=== PATIENT | female | born 1980 | race Caucasian/White ===

== ENCOUNTER 2018-06-16 00:21 | Inpatient (IN) | payer BC ==
[2018-06-16] MEDS ORDERED: RINGERS SOLUTION,LACTATED 1,000 ML IV ONE (01:00)
[2018-06-16] MEDS ORDERED: RINGERS SOLUTION,LACTATED 1,000 ML IV PRN (01:00)
[2018-06-16] MEDS ORDERED: MISOPROSTOL 0.2 MG TABLET ONE (01:04)
[2018-06-16] MEDS ORDERED: OXYTOCIN 10 UNIT/ML VIAL ONE (01:04)
[2018-06-16] MEDS ORDERED: LIDOCAINE 1% INJ-PF (10 MG/ML) 30 ML SDV ONE (01:04)
[2018-06-16] MEDS ORDERED: OXYTOCIN/NORMAL SALINE 20 UNIT/1,000 ML RTUINJ ONE (01:04)
[2018-06-16 01:10] LABS: ABSOLUTE LYMPHOCYTES (AUTO) 1.4 10^3/uL (0.5-4.7); ABSOLUTE MONOCYTES (AUTO) 0.6 10^3/uL (0.1-1.4); ABSOLUTE NEUT (AUTO) 9.3 10^3/uL (1.7-8.2); BASOPHILS % (AUTO) 0.3 % (0-2); EOSINOPHILS % (AUTO) 0.1 % (0-6); HEMOGLOBIN 12.8 g/dL (12.0-15.5); LYMPHOCYTES % (AUTO) 12.6 % (13-45); MEAN CORPUSCULAR HEMOGLOBIN 31.2 pg (27.0-33.4); MEAN CORPUSCULAR HGB CONC 34.6 g/dL (32.0-36.0); MEAN CORPUSCULAR VOLUME 90 fl (80-97); MONOCYTES % (AUTO) 5.4 % (3-13); PLATELET COUNT 198 10^3/uL (150-450); RED CELL DISTRIBUTION WIDTH 13.3 % (11.5-14.0); SEGMENTED NEUTROPHILS % (AUTO) 81.6 % (42-78); TOTAL CELLS COUNTED % (AUTO) 100 %; WHITE BLOOD COUNT 11.4 10^3/uL (4.0-10.5)
[2018-06-16 01:11] LABS: APPEARANCE,URINE SLIGHTLY-CLOUDY; BILIRUBIN,URINE NEGATIVE (NEGATIVE); COLOR,URINE YELLOW; GLUCOSE, URINE NEGATIVE (NEGATIVE); KETONES,URINE NEGATIVE (NEGATIVE); LEUKOCYTE ESTERASE,URINE NEGATIVE (NEGATIVE); NITRITE,URINE NEGATIVE (NEGATIVE); PROTEIN,URINE NEGATIVE (NEGATIVE); URINE SPECIFIC GRAVITY 1.016; UROBILINOGEN,URINE NEGATIVE mg/dL (<2.0)
[2018-06-16 01:33] LABS: URINE AMPHETAMINES SCREEN NEGATIVE; URINE BARBITURATES SCREEN NEGATIVE; URINE BENZODIAZEPINES SCREEN NEGATIVE; URINE COCAINE SCREEN NEGATIVE; URINE MARIJUANA (THC) SCREEN NEGATIVE; URINE METHADONE SCREEN NEGATIVE; URINE PHENCYCLIDINE SCREEN NEGATIVE
--- NOTE | 2018-06-16 03:01 | Admission Physical ---
Datetime Report Generated by CPN: 06/16/2018 03:00 CURRENT ADMISSION Chief Complaint: Uterine Contractions Indication for Induction: Not Applicable Admit Impression : Term, Intrauterine ; Active Labor Admit Plan: Admit to Unit; Initiate Labor Protocol ALLERGIES Medication Allergies: No Medication Allergies: No Known Allergies (06/16/2018) Latex: No Latex Allergies Food Allergies: N/A Environmental Allergies: N/A OBSTETRICAL HISTORY EDC: 07/03/2018 00:00 : 2 Para: 1 Term: 1 : 0 SAB: 0 IAB: 0 Ectopic: 0 Livin Cesareans: 0 VBACs: 0 Multiple Births: 0 Gestational Diabetes: No Rh Sensitization: No Incompetent Cervix: No ED: No Infertility: No ART Treatment: No Uterine Anomaly: No IUGR: No Hx Previous C/S: No Macrosomia: No Hx Loss/Stillborn: No PIH: No Hx : No Placenta Previa/Abruption: No Depression/PP Depression: No PTL/PROM: No Post Hemorrhage: No Current Procedures: Ultrasound; NST Obstetrical History Comments: G1 2012, , Girl, 39.4 G2 - Current SEE RECORDS Alcohol: No Marijuana : No Cocaine: No Other Illicit Drugs: No Cigarettes: Former Smoker. 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 INFECTIOUS HISTORY Gonorrhea: No Genital Herpes: No Chlamydia: No Tuberculosis: No Syphilis: No Hepatitis: No HIV/AIDS Exposure: No Rash or Viral Illness: No HPV: No PHYSICAL EXAM General: Normal HEENT: Normal Neurologic: Normal Thyroid: Normal Heart: Normal Lungs: Normal Breast: Normal Back: Normal Abdomen: Normal Genitourinary Exam: Normal Extremities: Normal DTRs: Normal Pelvic Type: Adequate Vital Signs: Reviewed; Within Normal Limits VAGINAL EXAM Dilatation: 6 Effacement: 90 Station: -1 MEMBRANES Pooling: Negative Membranes: Intact Amniotic Fluid Color: Clear FETUS A EGA: 37.4 Monitoring: External US FHR- Baseline: 130 Variability: Moderate 6-25bpm Accelerations: 15X15 Decelerations: None FHR Category: Category I Estimated Weight (gm): 3700 Presentation: Vertex PLANS FOR LABOR AND DELIVERY Labor and Delivery: None Pain Management: Epidural Feeding Preference: Breast Benefit of Breast Feed Discussed: Yes Circumcision: N/A INFORMED CONSENT Signature: with User ID: [email or web address]
[2018-06-16] MEDS ORDERED: NA PHOS,M-B/NA PHOS,DI-BA (ADULT) 133 ML ENEMA PR PRN (03:02)
[2018-06-16] MEDS ORDERED: BENZOCAINE/MENTHOL AEROSOL SPRAY 56 ML TOP PRN (03:02)
[2018-06-16] MEDS ORDERED: DIBUCAINE 1% OINTMENT 28 GM TP PRN (03:02)
[2018-06-16] MEDS ORDERED: PSEUDOEPHEDRINE HCL 30 MG TABLET PO PRN (03:02)
[2018-06-16] MEDS ORDERED: ZOLPIDEM TARTRATE 5 MG TABLET PO PRN (03:02)
[2018-06-16] MEDS ORDERED: OXYTOCIN/NORMAL SALINE 20 UNIT/1,000 ML RTUINJ IV PRN (03:02)
[2018-06-16] MEDS ORDERED: PROMETHAZINE HCL 25 MG TABLET PO PRN (03:02)
[2018-06-16] MEDS ORDERED: GLYCERIN/WITCH HAZEL LEAF 1 EACH MED..PAD TP PRN (03:02)
[2018-06-16] MEDS ORDERED: MEASLES,MUMPS&RUBELLA VACC/PF 0.5 ML VIAL SUBCUT PRN (03:02)
[2018-06-16] MEDS ORDERED: MAGNESIUM HYDROXIDE SUSP 30 ML UDCUP PO PRN (03:02)
[2018-06-16] MEDS ORDERED: ACETAMINOPHEN WITH CODEINE #3 TABLET PO PRN (03:02)
[2018-06-16] MEDS ORDERED: PROMETHAZINE HCL 25 MG SUPP.RECT PR PRN (03:02)
[2018-06-16] MEDS ORDERED: PROMETHAZINE HCL INJ 25 MG/1 ML VIAL IV PRN (03:02)
[2018-06-16] MEDS ORDERED: ACETAMINOPHEN 650 MG SUPP.RECT PR PRN (03:02)
[2018-06-16] MEDS ORDERED: DIPH/PERTUSS(ACELL)/TETANUS VAC/PF 0.5 ML SYR (>=10YO) IM PRN (03:02)
[2018-06-16] MEDS ORDERED: DIPHENHYDRAMINE HCL 25 MG CAPSULE PO PRN (03:02)
[2018-06-16] MEDS ORDERED: ACETAMINOPHEN WITH CODEINE #3 TABLET ONE (03:51)
[2018-06-16] MEDS ORDERED: IBUPROFEN 800 MG TABLET ONE (03:51)
[2018-06-16] MEDS: ACETAMINOPHEN WITH CODEINE #3 TABLET PO PRN ×2 (03:53→19:42)
--- NOTE | 2018-06-16 04:18 | Warning Signs in Babies ---
VOD Warning Signs Datetime Report Generated by [facility]: 06/16/2018 04:18 VOD#608 -Warning Signs in Babies: Needs to be viewed. (06/14/2018 17:30:Rebecca Blackwood RN)
[2018-06-16] MEDS: IBUPROFEN 800 MG TABLET PO SCH ×3 (06:34→22:25)
[2018-06-16] MEDS: SENNOSIDES/DOCUSATE 8.6-50 MG 1 EACH TABLET PO SCH (10:12)
[2018-06-16] MEDS: FERROUS SULFATE 325 MG TABLET PO SCH ×2 (10:12→17:51)
[2018-06-16] MEDS: PRENATAL VITAMIN W DHA CAPSULE PO SCH (10:13)
[2018-06-16] MEDS: FAMOTIDINE 20 MG TABLET PO SCH ×2 (10:13→22:25)
[2018-06-16] MEDS: DOCUSATE SODIUM 100 MG CAPSULE PO SCH ×2 (10:13→17:51)
[2018-06-17] MEDS: IBUPROFEN 800 MG TABLET PO SCH ×3 (05:10→21:32)
[2018-06-17 07:38] LABS: HEMATOCRIT 37.2 % (36.0-47.0); HEMOGLOBIN 12.8 g/dL (12.0-15.5); MEAN CORPUSCULAR HEMOGLOBIN 31.6 pg (27.0-33.4); MEAN CORPUSCULAR HGB CONC 34.3 g/dL (32.0-36.0); MEAN CORPUSCULAR VOLUME 92 fl (80-97); PLATELET COUNT 173 10^3/uL (150-450); RED BLOOD COUNT 4.03 10^6/uL (3.72-5.28); RED CELL DISTRIBUTION WIDTH 13.5 % (11.5-14.0)
[2018-06-17] MEDS: FAMOTIDINE 20 MG TABLET PO SCH ×2 (09:24→21:32)
[2018-06-17] MEDS: FERROUS SULFATE 325 MG TABLET PO SCH ×2 (09:25→17:39)
[2018-06-17] MEDS: DOCUSATE SODIUM 100 MG CAPSULE PO SCH ×2 (09:25→17:39)
[2018-06-17] MEDS: SENNOSIDES/DOCUSATE 8.6-50 MG 1 EACH TABLET PO SCH (09:25)
[2018-06-17] MEDS: PRENATAL VITAMIN W DHA CAPSULE PO SCH (09:25)
--- NOTE | 2018-06-17 12:56 | PDOC DISCHARGE SUMMARY ---
Final Diagnosis Discharge Date: 06/17/18 - Final Diagnosis (1) Hypothyroidism Is this a current diagnosis for this admission?: Yes (2) Normal vaginal delivery Is this a current diagnosis for this admission?: Yes Discharge Data - Discharge Medication Prescriptions: Levothyroxine Sodium [Synthroid 0.05 mg Tablet] 150 mcg PO DAILY #30 tablet Home Medications: No122/Iron/Folic Acid [ Multi Tablet] 1 tab PO DAILY 06/14/18 Acetaminophen with Codeine [Tylenol #3 Tablet] 2 each PO Q4HP PRN tablet Ibuprofen [Motrin 800 mg Tablet] 800 mg PO Q8 tablet 06/17/18 Levothyroxine Sodium [Synthroid 0.05 mg Tablet] 150 mcg PO DAILY #30 tablet Procedures: NST Intrapartum Procedure(s): Spontaneous Vaginal Delivery - Diagnosis Test Laboratory: Temp Pulse Resp BP Pulse Ox 98.6 F 86 18 125/77 100 06/17/18 07:14 06/17/18 07:14 06/17/18 07:14 06/17/18 07:14 06/17/18 07:14 06/16/18 06/16/18 06/17/18 00:40 00:58 07:06 RBC 4.10 4.03 Hgb 12.8 12.8 Hct 37.0 37.2 Urine Opiates Screen NEGATIVE - Discharge information/Instructions Discharge Activity: Balance Activity w/Rest, Pelvic Rest Discharge Diet: Regular Disposition: HOME, SELF-CARE Follow up with: [facility] in: 4, Weeks
--- NOTE | 2018-06-17 12:57 | PDOC PROGRESS REPORT ---
Subjective-OB Progress Note for:: 06/17/18 Subjective: reports bleeding slowing, pain controlled with ibuprofen, denies needs, agrees with plan for discharge today Physical Exam (OB) Vital Signs: Temp Pulse Resp BP Pulse Ox 98.6 F 86 18 125/77 100 06/17/18 07:14 06/17/18 07:14 06/17/18 07:14 06/17/18 07:14 06/17/18 07:14 Intake & Output 06/16/18 06/17/18 06/18/18 06:59 06:59 06:59 Intake Total 240 Balance 240 Weight 85.5 kg - Abdomen Description: Soft, Round Hernia Present: No Fundal Description: Firm, Midline Fundal Height: u/u - u/2 - Abdominal Inspection: Normal Distension: No distension Tenderness: Nontender - Extremities Lower extremities: Koko's sign - neg Calf: Normal, Nontender Objective-Diagnostic Laboratory: 06/17/18 07:06 06/17/18 07:06 WBC 10.0 RBC 4.03 Hgb 12.8 Hct 37.2 MCV 92 MCH 31.6 MCHC 34.3 RDW 13.5 Plt Count 173 Assessment and Plan(PN) - Assessment and Plan (1) Hypothyroidism Qualifiers: Hypothyroidism type: unspecified Qualified Code(s): E03.9 - Hypothyroidism , unspecified Is this a current diagnosis for this admission?: Yes (2) Normal vaginal delivery Is this a current diagnosis for this admission?: Yes - Time Spent with Patient Time with patient: Less than 15 minutes Medications reviewed and adjusted accordingly: Yes - Disposition Anticipated Discharge: Home - today
[2018-06-18] MEDS: IBUPROFEN 800 MG TABLET PO SCH (06:15)
[2018-06-18 08:32] VITALS: BP 114/72
[2018-06-18] MEDS: FAMOTIDINE 20 MG TABLET PO SCH (09:53)
[2018-06-18] MEDS: SENNOSIDES/DOCUSATE 8.6-50 MG 1 EACH TABLET PO SCH (09:53)
[2018-06-18] MEDS: PRENATAL VITAMIN W DHA CAPSULE PO SCH (09:53)
[2018-06-18] MEDS: DOCUSATE SODIUM 100 MG CAPSULE PO SCH (09:53)
[2018-06-18] MEDS: FERROUS SULFATE 325 MG TABLET PO SCH (09:53)
--- NOTE | 2018-06-18 10:39 | PDOC DISCHARGE SUMMARY ---
Final Diagnosis Discharge Date: 06/18/18 - Final Diagnosis (1) Hypothyroidism Is this a current diagnosis for this admission?: Yes (2) Normal vaginal delivery Is this a current diagnosis for this admission?: Yes Discharge Data - Discharge Medication Prescriptions: Levothyroxine Sodium [Synthroid 0.05 mg Tablet] 150 mcg PO DAILY #30 tablet Home Medications: No122/Iron/Folic Acid [ Multi Tablet] 1 tab PO DAILY 06/14/18 Acetaminophen with Codeine [Tylenol #3 Tablet] 2 each PO Q4HP PRN tablet Ibuprofen [Motrin 800 mg Tablet] 800 mg PO Q8 tablet 06/17/18 Levothyroxine Sodium [Synthroid 0.05 mg Tablet] 150 mcg PO DAILY #30 tablet Procedures: NST Intrapartum Procedure(s): Spontaneous Vaginal Delivery - Diagnosis Test Laboratory: Temp Pulse Resp BP Pulse Ox 97.9 F 77 18 114/72 98 06/18/18 07:54 06/18/18 07:54 06/18/18 07:54 06/18/18 07:54 06/18/18 07:54 06/16/18 06/16/18 06/17/18 00:40 00:58 07:06 RBC 4.10 4.03 Hgb 12.8 12.8 Hct 37.0 37.2 Urine Opiates Screen NEGATIVE - Discharge information/Instructions Discharge Activity: Balance Activity w/Rest, Pelvic Rest Discharge Diet: Regular Disposition: HOME, SELF-CARE Follow up with: [facility] in: 4, Weeks
--- NOTE | 2018-06-18 10:41 | PDOC PROGRESS REPORT ---
Subjective-OB Progress Note for:: 06/18/18 Subjective: no change from esterday, discharge was held d/t baby not going home. discharge today Physical Exam (OB) Vital Signs: Temp Pulse Resp BP Pulse Ox 97.9 F 77 18 114/72 98 06/18/18 07:54 06/18/18 07:54 06/18/18 07:54 06/18/18 07:54 06/18/18 07:54 Intake & Output 06/17/18 06/18/18 06/19/18 06:59 06:59 06:59 Intake Total 240 550 Balance 240 550 - Abdomen Description: Soft Hernia Present: No Fundal Description: Firm, Midline Fundal Height: u/u - u/2 Objective-Diagnostic Laboratory: 06/17/18 07:06 Assessment and Plan(PN) - Assessment and Plan (1) Hypothyroidism Qualifiers: Hypothyroidism type: unspecified Qualified Code(s): E03.9 - Hypothyroidism , unspecified Is this a current diagnosis for this admission?: Yes (2) Normal vaginal delivery Is this a current diagnosis for this admission?: Yes - Time Spent with Patient Time with patient: Less than 15 minutes Medications reviewed and adjusted accordingly: Yes - Disposition Anticipated Discharge: Home - today
--- NOTE | 2018-06-20 16:27 | Delivery Summary ---
Del Sum A-C Datetime Report Generated by CPN: 06/20/2018 16:26 DELIVERY PERSONNEL DELIVERY PERSONNEL: [id number] Delivery Doctor:: Callie Temple MD Labor and Delivery Nurse:: Rebecca Blackwood RNdeliverer pharmacy Nurse:: Zohra Sotomayor RN Financial Retirement Plan Specialist/LITHOGRAPHERS PRINTER: Macy Green, ST MATERNAL INFORMATION Delivery Anesthesia: None Medications After Delivery: Pitocin Drip 20 Units/1000ml NSS Estimated Blood Loss (ml): 200 Maternal Complications: None Provider Comments: Kiwi used x 3 pop off LABOR SUMMARY EDC: 07/03/2018 00:00 No. Babies in Womb: 1 Attempted: No Labor Anesthesia: None LABOR INFORMATION Reason for Induction: Not Applicable Onset of Labor: 06/16/2018 00:30 Complete Dilatation: 06/16/2018 02:30 Group B Beta Strep: Negative Steroids Given: None Reason Steroids Not Administered: Not Applicable MEMBRANES Membranes Rupture Method: Spontaneous Rupture of Membranes: 06/16/2018 02:27 Length of Rupture (hr): 0.25 Amniotic Fluid Color: Clear Amniotic Fluid Amount: Large Amniotic Fluid Odor: None STAGES OF LABOR Stage 1 hr: 2 Stage 1 min: 0 Stage 2 hr: 0 Stage 2 min: 12 Stage 3 hr: 0 Stage 3 min: 6 Total Time in Labor hr: 2 Total Time in Labor min: 18 VAGINAL DELIVERY Episiotomy: None Laceration #1: None Laceration Extension #1: N/A Laceration Repair: Not Applicable Sponge Count Correct: N/A Sharps Count Correct: N/A CSECTION DELIVERY Primary Indication: N/A Secondary Indication: N/A CSection Incidence: N/A Labor: N/A Elective: N/A CSection Incision: N/A BABY A INFORMATION Delivery Date/Time: 06/16/2018 02:42 Method of Delivery: Vaginal Method of Delivery: Vaginal Born in Route : No : N/A Forceps: N/A Vacuum Extraction: Successful Shoulder Dystocia : No PRESENTATION/POSITION BABY A Presentation: Cephalic Cephalic Presentation: Vertex Vertex Position: Right Occipital Anterior Breech Presentation: N/A PLACENTA INFORMATION BABY A Placenta Delivery Time : 06/16/2018 02:48 Placenta Method of Delivery: Spontaneous Placenta Status: Delivered SCORES BABY A Heart Rate 1 min: >100 bpm Resp Effort 1 min: Good Cry Reflex Irritability 1 min: Cough or Sneeze or Pulls Away Muscle Tone 1 min: Active Motion Color 1 min: Blue/Pale Resuscitation Effort 1 min: Tactile Stimulation SCORE 1 MIN: 8 Heart Rate 5 min: >100 bpm Resp Effort 5 min: Good Cry Reflex Irritability 5 min: Cough or Sneeze or Pulls Away Muscle Tone 5 min: Active Motion Color 5 min: Body [place], Extremities Blue Resuscitation Effort 5 min: Tactile Stimulation SCORE 5 MIN: 9 INFORMATION BABY A Gestational Age at Delivery: 37.4 Gestational Status: Early Term- 37- 38.6 Weeks Outcome : Liveborn Condition : Stable Infant Sex: Female IDENTIFICATION BABY A Infant Verification Date/Time: 06/16/2018 04:04 ID Band Number: [id number] Mother's Name Verified: Yes RN Verifying Infant: NDoyle RN Additional Verifying Personnel: Jeniffer RN WEIGHT/LENGTH BABY A Birthweight (gm): 3470 Infant Weight (lb): 7 Weight (oz): 10 Length (in): 19.75 Infant Length (cm): 50.17 CORD INFORMATION BABY A No. Cord Vessels: 3 Nuchal Cord : N/A Suction: Mouth; Nose ASSESSMENT BABY A Skin to Skin: Yes Care By: LFromm RN and Sena RN SIGNATURES Signature: with User ID: [email or web address]
== END 2018-06-18 12:53 | disposition home or self-care (01) | DRG 775 ==
LOC: LC 00:21 → LR 00:52 → 2N 05:01
PROVIDERS: ADMIT Obstetrics & Gynecology; ATTEND Obstetrics & Gynecology
PROC: 10D07Z6 Extraction of Products of Conception, Vacuum, Via Natural or Artificial Opening (ICD-10-PCS; principal; 2018-06-16)
PROC: 4A1HXCZ Monitoring of Products of Conception, Cardiac Rate, External Approach (ICD-10-PCS; 2018-06-16)
DX: O99.284 Endocrine, nutritional and metabolic diseases complicating childbirth (principal); E03.1 Congenital hypothyroidism without goiter; Z3A.37 37 weeks gestation of pregnancy; Z37.0 Single live birth; Z87.891 Personal history of nicotine dependence
CPT/HCPCS: 36415; 80307; 81005; 85025; 85027; 86592; 86850; 86900; 86901; 94760; J2590; J3490

== ENCOUNTER 2019-07-18 20:16 | Emergency (ER) | payer BC ==
[2019-07-18 23:19] LABS: ABSOLUTE EOSINOPHILS # (AUTO) 0.1 10^3/uL (0.0-0.6); ABSOLUTE LYMPHOCYTES (AUTO) 3.2 10^3/uL (0.5-4.7); ABSOLUTE MONOCYTES (AUTO) 0.4 10^3/uL (0.1-1.4); ABSOLUTE NEUT (AUTO) 3.8 10^3/uL (1.7-8.2); BASOPHILS % (AUTO) 0.3 % (0-2); EOSINOPHILS % (AUTO) 0.9 % (0-6); HEMATOCRIT 38.8 % (36.0-47.0); HEMOGLOBIN 13.2 g/dL (12.0-15.5); LYMPHOCYTES % (AUTO) 42.9 % (13-45); MEAN CORPUSCULAR HEMOGLOBIN 30.8 pg (27.0-33.4); MEAN CORPUSCULAR HGB CONC 33.9 g/dL (32.0-36.0); MEAN CORPUSCULAR VOLUME 91 fl (80-97); MONOCYTES % (AUTO) 5.6 % (3-13); PLATELET COUNT 264 10^3/uL (150-450); RED BLOOD COUNT 4.27 10^6/uL (3.72-5.28); RED CELL DISTRIBUTION WIDTH 13.3 % (11.5-14.0); SEGMENTED NEUTROPHILS % (AUTO) 50.3 % (42-78); TOTAL CELLS COUNTED % (AUTO) 100 %; WHITE BLOOD COUNT 7.6 10^3/uL (4.0-10.5)
[2019-07-18 23:27] LABS: APPEARANCE,URINE CLOUDY; BILIRUBIN,URINE NEGATIVE (NEGATIVE); COLOR,URINE YELLOW; GLUCOSE, URINE NEGATIVE (NEGATIVE); KETONES,URINE NEGATIVE (NEGATIVE); LEUKOCYTE ESTERASE,URINE NEGATIVE (NEGATIVE); NITRITE,URINE NEGATIVE (NEGATIVE); PROTEIN,URINE NEGATIVE (NEGATIVE); URINE SPECIFIC GRAVITY 1.018; UROBILINOGEN,URINE NEGATIVE mg/dL (<2.0)
[2019-07-18 23:31] LABS: ALBUMIN 4.4 g/dL (3.5-5.0); ALKALINE PHOSPHATASE 66 U/L (38-126); ANION GAP 10 (5-19); ASPARTATE AMINO TRANSFERASE 18 U/L (14-36); BILIRUBIN,TOTAL 0.3 mg/dL (0.2-1.3); BLOOD UREA NITROGEN 16 mg/dL (7-20); CALCIUM 9.4 mg/dL (8.4-10.2); CARBON DIOXIDE 24 mmol/L (22-30); CHLORIDE 105 mmol/L (98-107); GLUCOSE 105 mg/dL (75-110); TOTAL PROTEIN 7.2 g/dL (6.3-8.2)
[2019-07-19] MEDS ORDERED: KETOROLAC TROMETHAMINE 60 MG/2 ML SDV IM ONE (02:12)
--- NOTE | 2019-07-19 02:13 | ER Document Report ---
ED GI/ - General Chief Complaint: Abdominal Pain Stated Complaint: LOWER RIGHT QUARDRANT ABDOMINAL PAIN Time Seen by Provider: 07/19/19 01:51 Primary Care Provider: JADEN HUGHES MD [Primary Care Provider] - Follow up as needed Notes: Patient is a 38-year-old female that comes to the emergency department for chief complaint of abdominal pain. She states that comes in waves and has been doing this for the past 4 days but earlier was very sharp. Pain radiated to her lower back. Pain is less severe at this time. She denies vomiting, fever, dysuria, vaginal bleeding or discharge. She denies any surgeries or daily medications. She reports normal bowel movements. TRAVEL OUTSIDE OF THE [place] IN LAST 30 DAYS: No - Related Data Allergies/Adverse Reactions: No Known Allergies Allergy (Verified 07/18/19 21:38) Past Medical History - General Information source: Patient - Social History Smoking Status: Former Smoker Frequency of alcohol use: None Drug Abuse: None Lives with: Family Family History: Reviewed & Not Pertinent Patient has suicidal ideation: No Patient has homicidal ideation: No Surgical Hx: Negative - Immunizations Immunizations up to date: Yes Hx Diphtheria, Pertussis, Tetanus Vaccination: Yes Review of Systems - Review of Systems Constitutional: No symptoms reported EENT: No symptoms reported Cardiovascular: No symptoms reported Respiratory: No symptoms reported Gastrointestinal: See HPI Genitourinary: See HPI Female Genitourinary: See HPI Musculoskeletal: No symptoms reported Skin: No symptoms reported Hematologic/Lymphatic: No symptoms reported Neurological/Psychological: No symptoms reported Physical Exam - Vital signs Vitals: Temp Pulse Resp BP Pulse Ox 97.9 F 78 18 117/60 98 07/18/19 20:34 07/18/19 20:34 07/18/19 20:34 07/18/19 20:34 07/18/19 20:34 - Notes Notes: GENERAL: Alert, interacts well. No acute distress. HEAD: Normocephalic, atraumatic. EYES: Pupils equal, round, and reactive to light. Extraocular movements intact. ENT: Oral mucosa moist, tongue midline. Oropharynx unremarkable. Airway patent. NECK: Full range of motion. Supple. Trachea midline. LUNGS: Clear to auscultation bilaterally, no wheezes, rales, or rhonchi. No respiratory distress. HEART: Regular rate and rhythm. No murmur ABDOMEN: There is some tenderness in the right pelvic area, no specific McBurney's tenderness, remaining abdomen is benign. No guarding or rigidity. GENITOURINARY: Deferred EXTREMITIES: Moves all 4 extremities spontaneously. No edema, normal radial and dorsalis pedis pulses bilaterally. No cyanosis. BACK: no cervical, thoracic, lumbar midline tenderness. No saddle anesthesia, normal distal neurovascular exam. Moves all extremities in full range of motion. NEUROLOGICAL: Alert and oriented x3. Normal speech. Cranial nerves II through XII grossly intact. PSYCH: Normal affect, normal mood. SKIN: Warm, dry, normal turgor. No rashes or lesions noted. Course - Re-evaluation Re-evalutation: Patient is well-appearing, her abdomen is unremarkable except for some tenderness in the right pelvic area. No specific McBurney's point tenderness. Patient has been on and off for the past 4 days. No vaginal discharge or bleeding. No leukocytosis, unremarkable chemistry, negative test, unremarkable urinalysis. Based on patient's timeframe, exam, intermittent symptoms I have a very low suspicion of acute appendicitis. Discussed options with patient. Decision was made to perform transvaginal ultrasound. Transvaginal ultrasound does show small hemorrhoid. No ovarian cysts or concerning findings. Patient informs me that she has been having long periods which is new for her. Discussed how pain could be from the fibroid but this is not definite. I discussed the possibility of appendicitis. After discussing options decision was made to have patient treated symptomatically ( she states her pain completely resolved after Toradol here in the emergency department), have her follow-up with [facility], to have her return for any worsening symptoms that would suggest an acute abdomen. Patient states appreciation and agreement. Stable at time of discharge. - Vital Signs Vital signs: Temp Pulse Resp BP Pulse Ox 97.8 F 80 16 180/64 H 98 07/19/19 03:41 07/19/19 03:41 07/19/19 03:41 07/19/19 03:41 07/18/19 20:34 - Laboratory Result Diagrams: 07/18/19 22:52 07/18/19 22:52 Discharge - Discharge Clinical Impression: Abdominal pain Qualifiers: Abdominal location: right lower quadrant Qualified Code(s): R10.31 - Right lower quadrant pain Condition: Stable Disposition: HOME, SELF-CARE Additional Instructions: Your evaluation is reassuring and I do not suspect acute appendicitis at this time. You do have a uterine fibroid, this could be the cause of intermittent pain and longer menstrual cycles. Take Toradol if needed for pain, follow-up with [facility] referral for additional management. Come back if you are worse including severe worsening pain, vomiting, fever, swelling of the abdomen, or any other concerning or worsening symptoms. Prescriptions: Ketorolac Tromethamine [Toradol 10 mg Tablet] 10 mg PO Q8HP PRN #24 tablet PRN Reason: Referrals: JADEN HUGHES MD [Primary Care Provider] - Follow up as needed
--- NOTE | 2019-07-19 03:18 | RADIOLOGY REPORT (SQ) ---
EXAM DESCRIPTION: US PELVIS TRANSVAGINAL COMPLETED DATE/TME: 07/19/2019 02:12 CLINICAL HISTORY: 38 years, Female, right pelvic pain COMPARISON: None. TECHNIQUE: Transvaginal pelvic ultrasound with grayscale and color images. LIMITATIONS: None. FINDINGS: The uterus measures 7.9 x 4.9 x 3.7 cm. There is a 1.1 x 1.2 x 1.0 cm fibroid. The endometrium is normal in thickness measuring up to 0.5 cm. The right ovary measures 3.7 x 1.9 x 1.8 cm. There is a 1.9 x 1.6 x 1.5 cm septated cyst. There is normal dopplerable flow. The left ovary measures 2.3 x 1.7 x 1.9 cm. There is normal Doppler flow. There is a small amount of free fluid within the pelvis. IMPRESSION: Small uterine fibroid. Otherwise, unremarkable exam. copyright 2010 [employer]- All Rights Reserved
[2019-07-19 03:43] VITALS: BP 180/64
== END 2019-07-19 03:41 | disposition home or self-care (01) ==
LOC: ER 20:16
DX: R10.31 Right lower quadrant pain (principal); R10.2 Pelvic and perineal pain; M54.5 Low back pain
CPT/HCPCS: 36415; 76830; 80053; 81001; 81025; 83690; 85025; 93976; J1885

== ENCOUNTER → 2019-07-23 | Outpatient (CLI) | payer BC ==
--- NOTE | 2019-07-23 13:28 | RADIOLOGY REPORT (SQ) ---
EXAM DESCRIPTION: CT ABD/PELVIS COMBO COMPLETED DATE/TIME: 07/23/2019 10:30 am REASON FOR STUDY: (R10.2)PELVIC AND PERINEAL PAIN;(D25.9)LEIOMYOMA OF UTERUS, UNSPECIFIED R10.2 PEL PATTI AND PERINEAL PAIN D25.9 LEIOMYOMA OF UTERUS, UNSPECIFIED COMPARISON: None. TECHNIQUE: CT scan of the abdomen and pelvis performed with and without intravenous contrast, and wi th oral contrast. Contrasted imaging performed helical scanning technique and dynamic intravenous con trast injection. Images reviewed with lung, soft tissue, and bone windows. Reconstructed coronal and sagittal MPR images reviewed. Delayed images for evaluation of the urinary system also acquired. All images stored on PACS. All CT scanners at this facility use dose modulation, iterative reconstruction, and/or weight based d osing when appropriate to reduce radiation dose to as low as reasonably achievable (ALARA). [facility]: Dose Right [facility]: CareDose [facility]: Dose Right [facility]: Teradose 4D [facility]: [employer]nerMotion CONTRAST TYPE AND DOSE: 88 mL Omnipaque 350 iodinated contrast IV RENAL FUNCTION: None required. The patient is less than 50 years old. RADIATION DOSE: 1442 mGy cm LIMITATIONS: None. FINDINGS: NON-CONTRASTED IMAGING: No significant renal or bladder calcifications. No other significa nt organ calcifications. POST-CONTRASTED IMAGING: LOWER CHEST: No significant findings. No nodules or infiltrates. LIVER: Normal size. No masses. No dilated ducts. SPLEEN: Normal size. No focal lesions. PANCREAS: No masses. No significant calcifications. No adjacent inflammation or peripancreatic fluid collections. Pancreatic duct not dilated. GALLBLADDER: No identified stones by CT criteria. No inflammatory changes to suggest cholecystitis. ADRENAL GLANDS: No significant masses or asymmetry. RIGHT KIDNEY AND URETER: No solid masses. No significant calcifications. No hydronephrosis or hyd roureter. LEFT KIDNEY AND URETER: No solid masses. No significant calcifications. No hydronephrosis or hydr oureter. AORTA AND VESSELS: No aneurysm. No dissection. Renal arteries, SMA, celiac without stenosis. RETROPERITONEUM: No retroperitoneal adenopathy, hemorrhage or masses. BOWEL AND PERITONEAL CAVITY: No masses or inflammatory changes. No free fluid or peritoneal masses. Large burden of stool in the colon with dense stool balls in the rectum. APPENDIX: Normal. PELVIS: No mass. No free fluid. Normal bladder. ABDOMINAL WALL: No masses. No hernias. BONES: No significant or acute findings. OTHER: No other significant finding. IMPRESSION: Large burden of stool in the colon with dense stool balls in the rectum. No other CT fi ndings of the abdomen or pelvis to explain abdominal pain. TECHNICAL DOCUMENTATION: JOB ID: [id number] Quality ID # [id number]: Final reports with documentation of one or more dose reduction techniques (e.g., Au tomated exposure control, adjustment of the mA and/or kV according to patient size, use of iterative reconstruction technique) 2010 [employer]- All Rights Reserved Reading location - IP/workstation name: [email or web address]
== END ==
LOC: RAD 09:57
PROVIDERS: ATTEND Obstetrics & Gynecology
DX: D25.9 Leiomyoma of uterus, unspecified (principal); R10.2 Pelvic and perineal pain
CPT/HCPCS: 74178